=== PATIENT | male | born 1980 | race Asian ===

== ENCOUNTER → 2020-12-05 | Outpatient (CLI) | payer OTHER | LOC: OPSV 13:12 → LAB 13:12 | DX: U07.1 COVID-19 (principal) | CPT/HCPCS: U0002 ==

== ENCOUNTER → 2021-11-12 | Outpatient (CLI) | payer OTHER | LOC: EROP 17:57 | DX: Z20.822 Contact with and (suspected) exposure to COVID-19 (principal) | CPT/HCPCS: U0002 ==